=== PATIENT | female | born 1945 | race Caucasian/White ===

== ENCOUNTER → 2023-09-21 10:51 | Outpatient (REF) | payer MEDICARE, OTHER, SELFPAY | LOC: DHCBC MAIN 10:51 | PROVIDERS: ATTENDING PHYSICIAN Internal Medicine Cardiovascular Disease; FAMILY PHYSICIAN Internal Medicine | DX: I42.9 Cardiomyopathy, unspecified (principal) | CPT/HCPCS: 93306 ==

== ENCOUNTER → 2023-10-14 08:50 | Outpatient (REF) | payer MEDICARE, OTHER, SELFPAY | LOC: RAD 08:50 | PROVIDERS: ATTENDING PHYSICIAN Physical Medicine & Rehabilitation; FAMILY PHYSICIAN Internal Medicine | DX: M25.552 Pain in left hip (principal) | CPT/HCPCS: 73502 ==

== ENCOUNTER → 2023-10-16 11:00 | Outpatient (REF) | payer MEDICARE, OTHER, SELFPAY | LOC: RCS 11:00 | PROVIDERS: ATTENDING PHYSICIAN Physical Medicine & Rehabilitation; FAMILY PHYSICIAN Internal Medicine; REFERRING PHYSICIAN Internal Medicine Cardiovascular Disease | DX: Z01.818 Encounter for other preprocedural examination (principal) | CPT/HCPCS: 93005 ==

== ENCOUNTER → 2023-11-10 08:33 | Outpatient (REF) | payer MEDICARE, OTHER, SELFPAY | LOC: PAVMRI 08:33 | PROVIDERS: ATTENDING PHYSICIAN Internal Medicine Cardiovascular Disease; FAMILY PHYSICIAN Internal Medicine | DX: I42.9 Cardiomyopathy, unspecified (principal); R93.1 Abnormal findings on diagnostic imaging of heart and coronary circulation | CPT/HCPCS: 75561; 75565; A9585 ==

== ENCOUNTER → 2024-01-01 08:50 | Outpatient (REF) | payer MEDICARE, OTHER, SELFPAY ==
[2024-01-01 09:53] LABS: % Basophils 0.6 % (0-2); % Eosinophils 3.2 % (0-6); % Immature Granulocytes 0.4 % (0-0.5); % Lymphocytes 38.7 % (20.5-51.1); % Monocytes 8.6 % (1.7-9.3); % Neutrophils 48.5 % (42.2-75.2); Absolute Eosinophils 0.2 10^3/uL (0-0.7); Absolute Lymphocytes 1.8 10^3/uL (1.2-3.4); Absolute Monocytes 0.4 10^3/uL (0.1-0.6); Absolute Neutrophils 2.3 10^3/uL (1.4-6.5); Hematocrit 38.6 % (37.0-47.0); Mean Corp Hgb Conc. 33.7 g/dL (33.0-37.0); Mean Platelet Volume 9.8 fL (7.4-10.4); Nucleated Red Blood Cells % 0 %; Platelet Count 192 10^3/uL (130-400); Red Blood Cell Count 3.94 10^6/uL (4.20-5.40); Red Cell Dist. Width 12.1 % (11.5-14.5); White Blood Cell Count 4.8 10^3/uL (4.8-10.8)
[2024-01-01 10:33] LABS: ALT (SGPT) 20 U/L (0-35); AST (SGOT) 31 U/L (14-36); Albumin 4.2 g/dl (3.5-5.0); Alkaline Phosphatase 71 U/L (38-126); Blood Urea Nitrogen 18 mg/dl (7-17); Calcium 9.2 mg/dl (8.4-10.2); Carbon Dioxide 30 mmol/L (22-30); Chloride 102 mmol/L (98-107); Glucose 88 mg/dl (70-99); HDL Cholesterol 74 mg/dl; LDL Cholesterol, Calculated 104 mg/dl; Potassium 4.6 mmol/L (3.5-5.1); Sodium 138 mmol/L (135-145); Total Cholesterol 192 mg/dl (50-199); Total Protein 6.4 g/dl (6.3-8.2); Triglyceride 74 mg/dl (10-149); Very Low Density Lipoprotein 14 mg/dl (0-30); eGFR > 60.00
[2024-01-01 10:53] LABS: Glycohemoglobin (HgbA1c) 5.9 % (4.0-5.6)
== END ==
LOC: REG 08:50
PROVIDERS: ATTENDING PHYSICIAN Internal Medicine
DX: Z00.00 Encounter for general adult medical examination without abnormal findings (principal); E78.2 Mixed hyperlipidemia; R73.03 Prediabetes
CPT/HCPCS: 36415; 80053; 80061; 83036; 85025

== ENCOUNTER → 2024-01-13 07:18 | Outpatient (REF) | payer MEDICARE, OTHER, SELFPAY ==
[2024-01-13 08:47] LABS: Albumin 4.2 g/dl (3.5-5.0); Blood Urea Nitrogen 14 mg/dl (7-17); Calcium 9.3 mg/dl (8.4-10.2); Carbon Dioxide 28 mmol/L (22-30); Chloride 100 mmol/L (98-107); Glucose 90 mg/dl (70-99); Potassium 4.4 mmol/L (3.5-5.1); Sodium 137 mmol/L (135-145); eGFR > 60.00
[2024-01-13 09:45] LABS: Phosphorus 4.1 mg/dl (2.5-4.5)
== END ==
LOC: REG 07:18
PROVIDERS: ATTENDING PHYSICIAN Internal Medicine Cardiovascular Disease; FAMILY PHYSICIAN Internal Medicine
DX: I42.9 Cardiomyopathy, unspecified (principal)
CPT/HCPCS: 36415; 80069

== ENCOUNTER → 2024-01-27 08:03 | Outpatient (REF) | payer MEDICARE, OTHER, SELFPAY | LOC: WDC 08:03 | PROVIDERS: ATTENDING PHYSICIAN Internal Medicine | DX: Z12.31 Encounter for screening mammogram for malignant neoplasm of breast (principal) | CPT/HCPCS: 77063; 77067 ==

== ENCOUNTER → 2024-01-29 10:18 | Outpatient (REF) | payer MEDICARE, OTHER, SELFPAY | LOC: RAD 10:18 | PROVIDERS: ATTENDING PHYSICIAN Internal Medicine | DX: R93.7 Abnormal findings on diagnostic imaging of other parts of musculoskeletal system (principal); M81.0 Age-related osteoporosis without current pathological fracture | CPT/HCPCS: 77080 ==

== ENCOUNTER → 2024-08-17 09:21 | Outpatient (REF) | payer MEDICARE, OTHER, SELFPAY | LOC: RCS 09:21 | PROVIDERS: ATTENDING PHYSICIAN Internal Medicine Cardiovascular Disease; FAMILY PHYSICIAN Internal Medicine | DX: I42.9 Cardiomyopathy, unspecified (principal); I50.22 Chronic systolic (congestive) heart failure; I49.3 Ventricular premature depolarization | CPT/HCPCS: 93306 ==

== ENCOUNTER → 2024-10-18 09:35 | Outpatient (REF) | payer MEDICARE, OTHER, SELFPAY ==
[2024-10-18 10:45] LABS: Albumin 4.3 g/dl (3.5-5.0); Blood Urea Nitrogen 13 mg/dl (7-17); Calcium 9.3 mg/dl (8.4-10.2); Carbon Dioxide 28 mmol/L (22-30); Chloride 101 mmol/L (98-107); Glucose 70 mg/dl (70-99); Phosphorus 3.8 mg/dl (2.5-4.5); Sodium 138 mmol/L (135-145); eGFR > 60.00
== END ==
LOC: REG 09:35
PROVIDERS: ATTENDING PHYSICIAN Internal Medicine Cardiovascular Disease; FAMILY PHYSICIAN Internal Medicine
DX: I42.9 Cardiomyopathy, unspecified (principal)
CPT/HCPCS: 36415; 80069

== ENCOUNTER → 2025-01-06 07:07 | Outpatient (REF) | payer MEDICARE, OTHER, SELFPAY ==
[2025-01-06 08:05] LABS: Hematocrit 37.0 % (37.0-47.0); Hemoglobin 12.4 g/dL (12.0-16.0); Mean Corp Hgb Conc. 33.5 g/dL (33.0-37.0); Mean Corpuscular Volume 95.6 fL (81.0-99.0); Nucleated Red Blood Cells % 0 %; Platelet Count 178 10^3/uL (130-400); Red Cell Dist. Width 12.6 % (11.5-14.5)
[2025-01-06 08:28] LABS: ALT (SGPT) 19 U/L (0-35); AST (SGOT) 24 U/L (14-36); Albumin 4.0 g/dl (3.5-5.0); Alkaline Phosphatase 61 U/L (38-126); Blood Urea Nitrogen 12 mg/dl (7-17); Calcium 9.4 mg/dl (8.4-10.2); Carbon Dioxide 29 mmol/L (22-30); Chloride 105 mmol/L (98-107); Glucose 96 mg/dl (70-99); HDL Cholesterol 61 mg/dl; LDL Cholesterol, Calculated 82 mg/dl; Potassium 4.1 mmol/L (3.5-5.1); Sodium 137 mmol/L (135-145); Total Protein 6.4 g/dl (6.3-8.2); Very Low Density Lipoprotein 17 mg/dl (0-30); eGFR > 60.00
== END ==
LOC: REG 07:07
PROVIDERS: ATTENDING PHYSICIAN Internal Medicine; REFERRING PHYSICIAN Internal Medicine Cardiovascular Disease
DX: Z00.01 Encounter for general adult medical examination with abnormal findings (principal); E78.2 Mixed hyperlipidemia; Z68.26 Body mass index [BMI] 26.0-26.9, adult; I42.9 Cardiomyopathy, unspecified; I50.22 Chronic systolic (congestive) heart failure
CPT/HCPCS: 36415; 80053; 80061; 85025

== ENCOUNTER → 2025-02-01 07:57 | Outpatient (REF) | payer MEDICARE, OTHER, SELFPAY | LOC: WDC 07:57 | PROVIDERS: ATTENDING PHYSICIAN Obstetrics & Gynecology Gynecology; FAMILY PHYSICIAN Internal Medicine | DX: Z12.31 Encounter for screening mammogram for malignant neoplasm of breast (principal) | CPT/HCPCS: 77063; 77067 ==

== ENCOUNTER → 2025-02-13 11:50 | Outpatient (REF) | payer MEDICARE, OTHER, SELFPAY | LOC: RAD 11:50 | PROVIDERS: ATTENDING PHYSICIAN Nurse Practitioner Acute Care | DX: R05.3 Chronic cough (principal) | CPT/HCPCS: 71046 ==